=== PATIENT | female | born 1925 | race Asian ===

== ENCOUNTER 2016-07-23 11:58 | Inpatient (IN) | payer MEDICARE, MEDICAID, OTHER ==
[~2016-07-23] VITALS: Ht 160 cm; Wt 53.3 kg
[2016-07-23 12:02] VITALS: BP 235/105; PULSE 82; RESP 20; TEMP 97.9; O2SAT 96
[2016-07-23] MEDS ORDERED: OMEP20TA PO (12:21)
[2016-07-23] MEDS ORDERED: DILT0.05 PO (12:21)
[2016-07-23] MEDS ORDERED: LABETALOL HCL 100 MG/20 ML VIAL IV PUSH ONE (12:45)
[2016-07-23 13:00] LABS: AUTOMATED NEUTROPHIL # 4.6 TH/MM3 (1.8-7.7); BASOPHIL % 0.4 % (0.0-2.0); EOSINOPHIL # 0.1 TH/MM3 (0-0.4); HEMATOCRIT 38.3 % (35.0-46.0); HEMO FLAGS DIFF FINAL; LYMPH % 27.7 % (9.0-44.0); MEAN CELL VOLUME 91.7 FL (80.0-100.0); MEAN CORPUSCULAR HEMOGLOBIN 30.6 PG (27.0-34.0); MEAN CORPUSCULAR HGB CONC 33.4 % (32.0-36.0); MONO % 9.3 % (0.0-8.0); NEUT % 61.6 % (16.0-70.0); PLATELET COUNT 277 TH/MM3 (150-450); RED BLOOD COUNT 4.18 MIL/MM3 (4.00-5.30); RED CELL DISTRIBUTION WIDTH 13.6 % (11.6-17.2); WHITE BLOOD COUNT 7.4 TH/MM3 (4.0-11.0)
--- NOTE | 2016-07-23 13:02 | PD ---
HPI Chief Complaint: Neuro Symptoms/ Deficits Time Seen by Provider: 12:22 Travel History International Travel<30 days: No Contact w/Intl Traveler<30days: No Traveled to known affect area: No History of Present Illness HPI This patient was sent over by her primary physician who saw and examined her this morning. Primary physician was concern for stroke. Patient complains of discoordination of her left hand primarily. This is been going on for a day and a half. It is not worse or better today than yesterday. The doctor office reports that there was some degree of facial droop and left hand weakness and numbness. She has no right sided symptoms. No leg symptoms. Denies history of stroke. She has chronic if a call to control blood pressure. She arrives with accelerated hypertension of 222 systolic. Symptoms are moderately severe. No alleviating factors PFSH Past Medical History Diabetes: Yes Patient Takes Glucophage: No Hypertension: Yes Tetanus Vaccination: Unknown Influenza Vaccination: Yes ?: Not Past Surgical History Other Surgery: Yes (left breast cyst) Social History Alcohol Use: No Tobacco Use: No Substance Use: No Allergies-Medications (Allergen,Severity, Reaction): Coded Allergies: No Known Allergies (Unverified , 07/23/16) Reported Meds & Prescriptions Reported Meds & Active Scripts Active Reported Diltiazem ER 24 HR 180 Mg Tonie 180 Mg PO DAILY Omeprazole 20 Mg Tab 20 Mg PO DAILY Review of Systems General / Constitutional: No: Fever Eyes: No: Visual changes HENT: Positive: Headaches Cardiovascular: No: Chest Pain or Discomfort Respiratory: No: Shortness of Breath Gastrointestinal: No: Abdominal Pain Genitourinary: No: Dysuria Musculoskeletal: Positive: Weakness, No: Pain Skin: No Rash Neurologic: Positive: Weakness, Coordination Problem, Sensory Disturbance Psychiatric: No: Depression Endocrine: No: Polydipsia Hematologic/Lymphatic: No: Easy Bruising Physical Exam Narrative GENERAL: Well-nourished, well-developed patient in no apparent distress. SKIN: Warm and dry. HEAD: Atraumatic. Normocephalic. EYES: Pupils equal and round. No scleral icterus. No injection or drainage. ENT: No nasal bleeding or discharge. Mucous membranes pink and moist. NECK: Trachea midline. No JVD. CARDIOVASCULAR: Regular rate and rhythm. No murmur appreciated. RESPIRATORY: No accessory muscle use. Clear to auscultation. Breath sounds equal bilaterally. GASTROINTESTINAL: Abdomen soft, non-tender, nondistended. Hepatic and splenic margins not palpable. MUSCULOSKELETAL: No obvious deformities. No clubbing. No cyanosis. No edema. NEUROLOGICAL: Awake and alert. No obvious cranial nerve deficits. Motor grossly within normal limits. Normal speech. Sensation subjectively intact. I don't detect any facial droop. Strength seems symmetric. She seems discoordinated on finger to nose and finger to finger touching. It takes her a while to do those tests, longer than I would expect. PSYCHIATRIC: Appropriate mood and affect; insight and judgment normal. Data Data Last Documented VS Vital Signs Date Time Temp Pulse Resp B/P Pulse Ox O2 Delivery O2 Flow Rate FiO2 07/23/16 13:24 55 18 183/74 97 Room Air 07/23/16 12:02 97.9 Orders Iv Access Insert/Monitor (07/23/16 12:37) Complete Blood Count With Diff (07/23/16 12:37) Ct Brain W/O Iv Contrast(Rout) (07/23/16 ) Basic Metabolic Panel (Bmp) (07/23/16 12:37) Prothrombin Time / Inr (Pt) (07/23/16 12:37) Act Partial Throm Time (Ptt) (07/23/16 12:37) Electrocardiogram (07/23/16 ) Labetalol Inj (Trandate Inj) (07/23/16 12:45) Admit To Inpatient (07/23/16 ) Code Status (07/23/16 14:32) Vital Signs (Adult) Q4H (07/23/16 14:32) Activity Oob With Assistance (07/23/16 14:32) Diet Heart Healthy (07/23/16 Dinner) Sodium Chloride 0.9% Flush (Ns Flush) (07/23/16 14:45) Sodium Chloride 0.9% Flush (Ns Flush) (07/23/16 21:00) Acetaminophen (Tylenol) (07/23/16 14:45) Ondansetron Inj (Zofran Inj) (07/23/16 14:45) Temazepam (Restoril) (07/23/16 14:45) Comprehensive Metabolic Panel (07/24/16 06:00) Complete Blood Count With Diff (07/24/16 06:00) Case Management Consult (07/23/16 14:32) Scd Bilateral/Knee High ENOC.BID (07/23/16 14:32) Arsalan Bilateral/Knee High ENOC.QSHIFT (07/23/16 14:32) Acetaminophen (Tylenol) (07/23/16 14:45) Naloxone Inj (Narcan Inj) (07/23/16 14:45) Inpatient Certification (07/23/16 ) Albuterol-Ipratropium Neb (Duoneb Neb) (07/23/16 14:45) Enalaprilat Inj (Vasotec Inj) (07/23/16 14:45) Diltiazem Cd (Cardizem Cd) (07/24/16 09:00) Pantoprazole (Protonix) (07/24/16 09:00) Lipid Profile (07/24/16 06:00) Hemoglobin (Hgb) A1c (07/24/16 06:00) Vital Signs (Adult) Q2HX12,Q4H (07/23/16 14:35) Nih Stroke Scale - Nihss .Daily (07/23/16 14:35) Neuro Checks Q2HX12,Q4H (07/23/16 14:35) ^ Notify Dr: Other (07/23/16 14:35) Ot Request For Service (07/23/16 14:35) Pt Request For Service (07/23/16 14:35) St Request For Service (07/23/16 14:35) Us Carotid Arteries Comp Bilat (07/23/16 ) Mra Brain W/O Contrast (Cow) (07/23/16 ) Mri Brain W/O Contrast (07/23/16 ) Sodium Chlor 0.9% 1000 Ml Inj (Ns 1000 M (07/23/16 14:35) Aspirin Chew (Aspirin Chew) (07/24/16 09:00) Football Pad Repairer / Telemetry ENOC.Q8H (07/23/16 14:35) Consult Stoke Navigator (07/23/16 ) Heparin Inj (Heparin Inj) (07/23/16 14:45) Hydralazine (Apresoline) (07/23/16 14:45) Admit Order (Ed Use Only) (07/23/16 14:42) Labs Laboratory Tests Test 07/23/16 12:45 White Blood Count 7.4 TH/MM3 Red Blood Count 4.18 MIL/MM3 Hemoglobin 12.8 GM/DL Hematocrit 38.3 % Mean Corpuscular Volume 91.7 FL Mean Corpuscular Hemoglobin 30.6 PG Mean Corpuscular Hemoglobin 33.4 % Concent Red Cell Distribution Width 13.6 % Platelet Count 277 TH/MM3 Mean Platelet Volume 7.7 FL Neutrophils (%) (Auto) 61.6 % Lymphocytes (%) (Auto) 27.7 % Monocytes (%) (Auto) 9.3 % Eosinophils (%) (Auto) 1.0 % Basophils (%) (Auto) 0.4 % Neutrophils # (Auto) 4.6 TH/MM3 Lymphocytes # (Auto) 2.0 TH/MM3 Monocytes # (Auto) 0.7 TH/MM3 Eosinophils # (Auto) 0.1 TH/MM3 Basophils # (Auto) 0.0 TH/MM3 CBC Comment DIFF FINAL Differential Comment Prothrombin Time 10.0 SEC Prothromb Time International 0.9 RATIO Ratio Activated Partial 26.4 SEC Thromboplast Time Sodium Level 141 MEQ/L Potassium Level 3.9 MEQ/L Chloride Level 107 MEQ/L Carbon Dioxide Level 27.1 MEQ/L Anion Gap 7 MEQ/L Blood Urea Nitrogen 20 MG/DL Creatinine 1.19 MG/DL Estimat Glomerular Filtration 43 ML/MIN Rate Random Glucose 96 MG/DL Calcium Level 8.5 MG/DL [facility] Medical Decision Making Medical Screen Exam Complete: Yes Emergency Medical Condition: Yes Medical Record Reviewed: Yes Differential Diagnosis CVA, TIA, intracranial hemorrhage Narrative Course I have reviewed the patient's electronic medical record. Patient's last visit here was 2003 for mammogram IV placed I gave her 10 mg IV labetalol for accelerated hypertension of 222 systolic. Even in the face of possible ischemic CVA this exceeds are limits of permissive hypertension. I reviewed her EKG which shows sinus rhythm without ectopy Extended cardiac monitoring shows sinus rhythm without ectopy CBC is normal Metabolic profile is normal Coagulation studies are normal Brain CT is negative I spoke with her primary physician who saw her this morning and sent her here out of concern for stroke. It seems like her neurologic symptoms are waxing and waning. On recheck her neurologic status is not improved or worsened. 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
[2016-07-23 13:15] LABS: BICARBONATE 27.1 MEQ/L (21.0-32.0); POTASSIUM 3.9 MEQ/L (3.5-5.1)
[2016-07-23 13:16] LABS: APTT (PATIENT) 26.4 SEC (24.3-30.1); INTERNATIONAL NORMALIZED RATIO 0.9 RATIO
[2016-07-23 13:24] VITALS: BP 183/74; PULSE 55; RESP 18; O2SAT 97
--- NOTE | 2016-07-23 13:25 | RADRPT ---
EXAM DATE/TIME: 07/23/2016 13:01 [facility] COMPARISON: No previous studies available for comparison. INDICATIONS : Left upper extremitiy pain. RADIATION DOSE: 41.86 CTDIvol (mGy) MEDICAL HISTORY : Hypertension. Diabetes SURGICAL HISTORY : None. ENCOUNTER: Initial ACUITY: 1 day PAIN SCALE: 0/10 LOCATION: cranial TECHNIQUE: Multiple contiguous axial images were obtained of the head. Using automated exposure control and adj ustment of the mA and/or kV according to patient size, radiation dose was kept as low as reasonably a chievable to obtain optimal diagnostic quality images. FINDINGS: CEREBRUM: The ventricles are normal for age. No evidence of midline shift, mass lesion, hemorrhage or acute in farction. No extra-axial fluid collections are seen. Mild ischemic deep white matter demyelinization POSTERIOR FOSSA: The cerebellum and brainstem are intact. The 4th ventricle is midline. The cerebellopontine angle i s unremarkable. EXTRACRANIAL: The visualized portion of the orbits is intact. Ossification of the internal carotid arteries in the siphon and vertebral arteries at foramen SKULL: The calvaria is intact. No evidence of skull fracture. CONCLUSION: Normal examination for a patient of this age. Pieter Dwyer MD on July 23, 2016 at 13:23 Board Certified Radiologist. This report was verified electronically.
[2016-07-23] MEDS ORDERED: ENALAPRILAT 1.25 MG/ML VIAL IV PUSH PRN (14:45)
[2016-07-23] MEDS ORDERED: ACETAMINOPHEN 325 MG TAB PO PRN ×2 (14:45)
[2016-07-23] MEDS ORDERED: SODIUM CHLORIDE 0.9% FLUSH 5 ML FLUSH FLUSH PRN (14:45)
[2016-07-23] MEDS ORDERED: TEMAZEPAM 15 MG CAP PO PRN (14:45)
[2016-07-23] MEDS ORDERED: NALOXONE HCL 0.4 MG/ML AMP IV PRN (14:45)
[2016-07-23] MEDS ORDERED: ONDANSETRON HCL 4 MG/2 ML VIAL IVP PRN (14:45)
[2016-07-23] MEDS ORDERED: RESP: ALBUTEROL 2.5 MG/IPRATROPIUM 0.5 MG NEB (PRN) NEB (14:45)
--- NOTE | 2016-07-23 15:27 | HHI.HP ---
[facility] Chanel Vann MD Admission Diagnosis acute ischemic CVA,hypertensive emerg Diagnoses: (1) Hypertensive urgency (2) TIA (transient ischemic attack) (3) GERD (gastroesophageal reflux disease) (4) Diet-controlled diabetes mellitus (5) Acute renal failure Chief Complaint: Left hand weakness Travel History International Travel<30 Days: No Contact w/Intl Traveler <30 Da: No Traveled to Known Affected Are: No History of Present Illness 89-year-old [place] female with a history of hypertension, GERD, diet controlled diabetes type 2 chemotherapy to the ED for evaluation of for possible stroke as patient was sent to the ED by her PCP this morning. Apparently patient was seen in complain of discoordination of her left hand primarily, which started yesterday. Patient described sometimes after breakfast as she was washing dishes she started dropping her dishes mostly from her left hand. O on patient was unable to bottom her shirt. She also noticed some degree of facial drop exacerbated by left hand numbness. Patient states, on 07/17/16 she was prescribed another BP medication however due to poor communication with her PCPs office she hasn't been able to get his medications therefore she has noticed increase BP in the past several days. On arrival in the ED she had accelerated hypertension with systolic 222 which responded well to labetalol IV 1. She has no GI bleed. During my exam her symptoms seem to have resolved and head CT was negative. Review of Systems Other 12 systems reviewed and are negative except for the one mentioned in history of present illness Past Family Social History Past Medical History Diet control Diabetes Hypertension GERD Past Surgical History Left breast cyst Cholecystectomy Reported Medications Diltiazem ER 24 HR 180 Mg Tonie 180 Mg PO DAILY Omeprazole 20 Mg Tab 20 Mg PO DAILY Allergies: Coded Allergies: No Known Allergies (Unverified , 07/23/16) Family History Reported to sisters with history of TB Social History Alcohol Use: No Tobacco Use: No Substance Use: No Physical Exam Vital Signs Vital Signs Date Time Temp Pulse Resp B/P Pulse Ox O2 Delivery O2 Flow Rate FiO2 07/23/16 13:24 55 18 183/74 97 Room Air 07/23/16 12:02 97.9 82 20 235/105 96 Room Air Physical Exam GENERAL: This is a well-nourished, well-developed patient, in no apparent distress. SKIN: No rashes, ecchymoses or lesions. Cool and dry. HEAD: Atraumatic. Normocephalic. No temporal or scalp tenderness. EYES: Pupils equal round and reactive. Extraocular motions intact. No scleral icterus. No injection or drainage. ENT: Nose without bleeding, purulent drainage or septal hematoma. Throat without erythema, tonsillar hypertrophy or exudate. Uvula midline. Airway patent. NECK: Trachea midline. No JVD or lymphadenopathy. Supple, nontender, no meningeal signs. CARDIOVASCULAR: Regular rate and rhythm without murmurs, gallops, or rubs. RESPIRATORY: Clear to auscultation. Breath sounds equal bilaterally. No wheezes , rales, or rhonchi. GASTROINTESTINAL: Abdomen soft, non-tender, nondistended. No hepato-splenomegaly , or palpable masses. No guarding. MUSCULOSKELETAL: Extremities without clubbing, cyanosis, or edema. No joint tenderness, effusion, or edema noted. No calf tenderness. Negative Homans sign bilaterally. NEUROLOGICAL: Awake and alert. Cranial nerves II through XII intact. Motor and sensory grossly within normal limits. Five out of 5 muscle strength in all muscle groups. Normal speech. Laboratory Laboratory Tests Test 07/23/16 12:45 White Blood Count 7.4 Red Blood Count 4.18 Hemoglobin 12.8 Hematocrit 38.3 Mean Corpuscular Volume 91.7 Mean Corpuscular Hemoglobin 30.6 Mean Corpuscular Hemoglobin 33.4 Concent Red Cell Distribution Width 13.6 Platelet Count 277 Mean Platelet Volume 7.7 Neutrophils (%) (Auto) 61.6 Lymphocytes (%) (Auto) 27.7 Monocytes (%) (Auto) 9.3 Eosinophils (%) (Auto) 1.0 Basophils (%) (Auto) 0.4 Neutrophils # (Auto) 4.6 Lymphocytes # (Auto) 2.0 Monocytes # (Auto) 0.7 Eosinophils # (Auto) 0.1 Basophils # (Auto) 0.0 CBC Comment DIFF FINAL Differential Comment Prothrombin Time 10.0 Prothromb Time International 0.9 Ratio Activated Partial 26.4 Thromboplast Time Sodium Level 141 Potassium Level 3.9 Chloride Level 107 Carbon Dioxide Level 27.1 Anion Gap 7 Blood Urea Nitrogen 20 Creatinine 1.19 Estimat Glomerular Filtration 43 Rate Random Glucose 96 Calcium Level 8.5 Result Diagram: 07/23/16 1245 07/23/16 1245 Imaging Last Impressions Head CT 07/23/16 0000 Signed Impressions: Service Date/Time: Saturday, July 23, 2016 13:01 - CONCLUSION: Normal examination for a patient of this age. Pieter Dwyer MD Assessment and Plan Problem List: (1) TIA (transient ischemic attack) ICD Code: G45.9 Status: Acute (2) Hypertensive urgency ICD Code: I16.0 Status: Acute (3) Diet-controlled diabetes mellitus ICD Code: E11.9 Status: Acute (4) GERD (gastroesophageal reflux disease) ICD Code: K21.9 Status: Chronic (5) Acute renal failure ICD Code: N17.9 Status: Acute Assessment and Plan 89-year-old female with 1-TIA: Head CT noted and review by me and negative however will check brain MRI/ MRA as well as carotid ultrasound + 2-D echo. Will consult neurology. Check lipid profile and A1c. Start aspirin and consider adding statin based on LFTs as well as LDH. PT/OT/speech consult 2-Hypertensive urgency: Status post labetalol IV with improvement of BP 3-Hypertension: Resume Cardizem and add hydralazine 4-Acute renal failure: Prerenal, secondary to dehydration, gentle IV fluid hydration and avoid all nephrotoxic drugs. Monitor BUN/creatinine 5-GERD: Resume Prilosec 6-Diet control diabetes: Check hemoglobin A1c 7-DVT prophylaxis: Heparin Code Status Full code Discussed Condition With Patient, ED physician Physician Certification 2 Midnight Certification Type: Admission for Inpatient Services Order for Inpatient Services The services are ordered in accordance with Medicare regulations or non- Medicare payer requirements, as applicable. In the case of services not specified as inpatient-only, they are appropriately provided as inpatient services in accordance with the 2-midnight benchmark. Estimated LOS (days): 2 days is the estimated time the patient will need to remain in the hospital, assuming treatment plan goals are met and no additional complications. Post-Hospital Plan: Not yet determined Alexandro Baltazar MD Jul 23, 2016 15:27
[2016-07-23 15:36] VITALS: BP 185/81; PULSE 57; RESP 18; O2SAT 97
[2016-07-23] MEDS: SODIUM CHLOR 0.9% 1000 ML INJ 1,000 ML IV SCH (16:10)
[2016-07-23] MEDS: HEPARIN SODIUM - SQ 10,000 UNITS/ML VIAL SQ SCH (16:10)
--- NOTE | 2016-07-23 16:57 | RADRPT ---
EXAM DATE/TIME: 07/23/2016 16:24 [facility] COMPARISON: No previous studies available for comparison. INDICATIONS : CVA. Left upper extremity weakness. MEDICAL HISTORY : Hypertension. Diabetes mellitus type 2. SURGICAL HISTORY : Left breast cyst. ENCOUNTER: Subsequent ACUITY: 1 day PAIN SCORE: 0/10 LOCATION: head. Please note a normal MRA of the brain does not entirely exclude the possibility of a small aneurysm, nor the possibility of distal intracranial vessel disease. TECHNIQUE: 3D time of flight MRA was performed. Source images, multiplanar STS MIP, and 3D volume MIP reconstru ctions were reviewed. FINDINGS: There is excellent visualization of the major intracranial arteries out to the second-order branch ve ssels. Variant anatomy is seen with persistent circulation noted bilaterally. Scattered atheros clerotic plaque with areas of mild luminal narrowing noted throughout. The most significant stenosis measures 50-60% involving the mid to distal right M1 segment. There is no evidence for aneurysm or va scular malformation. CONCLUSION: 1. Scattered atherosclerotic disease most pronounced involving the M1 segment on the right with a 50- 60% stenosis. Lai Dietrich Jr., MD on July 23, 2016 at 16:52 Board Certified Radiologist. This report was verified electronically.
--- NOTE | 2016-07-23 17:01 | RADRPT ---
EXAM DATE/TIME: 07/23/2016 16:24 [facility] COMPARISON: No previous studies available for comparison. INDICATIONS : CVA. Left upper extremity weakness. MEDICAL HISTORY : Hypertension. Diabetes mellitus type 2. SURGICAL HISTORY : Left breast cyst. ENCOUNTER: Subsequent ACUITY: 1 day PAIN SCORE: 0/10 LOCATION: head. TECHNIQUE: Multiplanar, multisequence MRI of the brain was performed without contrast. FINDINGS: CEREBRUM: The ventricles are normal for age. Cavum septum pellucidum noted. No evidence of midline shift, mass lesion or hemorrhage. No extraaxial fluid collections are seen. The pituitary gland and suprasella r cistern are normal in configuration. WHITE MATTER: Multiple foci of high T2 signal abnormality involving the periventricular white matter of both cerebr al hemispheres. This is symmetrical. POSTERIOR FOSSA: The cerebellum and brainstem are intact. The 4th ventricle is midline. The cerebellopontine angle is unremarkable. The cerebellar tonsils are normal in position. DIFFUSION IMAGING: There is a tiny focus of restricted diffusion involving the cortex of the right parietal lobe near th e vertex. EXTRACRANIAL: The visualized portions of the orbits and paranasal sinuses are unremarkable. CONCLUSION: 1. Tiny focus of acute cortical infarction involving the right parietal lobe. No hemorrhage. 2. Extensive chronic small vessel ischemic change. Lai Dietrich Jr., MD on July 23, 2016 at 16:56 Board Certified Radiologist. This report was verified electronically.
[2016-07-23 20:00] VITALS: BP 178/88; PULSE 62; RESP 18; TEMP 97; O2SAT 95
[2016-07-23] MEDS: hydrALAZINE HCL 25 MG TAB PO SCH (21:54)
[2016-07-23] MEDS: SODIUM CHLORIDE 0.9% FLUSH 5 ML FLUSH FLUSH SCH (21:54)
--- NOTE | 2016-07-23 22:45 | RADRPT ---
EXAM DATE/TIME: 07/23/2016 22:22 [facility] COMPARISON: MRA BRAIN W/O CONTRAST, July 23, 2016, 16:24. MRI BRAIN W/O CONTRAST, July 23, 2016, 16:24. CT BRAIN W/O CONTRAST, July 23, 2016, 13:01. INDICATIONS : Transient ischemic attack. MEDICAL HISTORY : Hypertension. Diabetes. SURGICAL HISTORY : Left breast cyst surgery. ENCOUNTER: Initial ACUITY: 1 day PAIN SCORE: 0/10 LOCATION: Bilateral neck PEAK SYSTOLIC VELOCITIES (cm/sec): ICA/CCA RATIO: Right: 1.3 Left: 1.5 ICA: Right: 92 Left: 108 CCA: Right: 68 Left: 72 ECA: Right: 57 Left: 57 VERTEBRAL: Right: 38 antegrade Left: 52 antegrade Elevated flow velocities and ICA/CCA ratios have been found to correlate with increased degrees of vessel stenosis, calculated as percentage of diameter relative to a normal segment of distal ICA/CCA FINDINGS: RIGHT CAROTID: Trace plaque seen at the bulb and proximal internal carotid artery. LEFT CAROTID: Mild plaque seen within the bulb and proximal internal carotid artery. VERTEBRAL ARTERIES: Antegrade flow is seen in both vertebral arteries. MISCELLANEOUS: None. CONCLUSION: Bilateral carotid bifurcation atherosclerotic plaque, minimal on the right and mild on the left. No h emodynamically significant narrowing. Kaiser Nassar MD on July 23, 2016 at 22:42 Board Certified Radiologist. This report was verified electronically.
--- NOTE | 2016-07-23 23:09 | EKG ---
Date Performed: 07/23/2016 Time Performed: 13:18:22 PTAGE: 89 years EKG: SINUS BRADYCARDIA BORDERLINE ECG NO PREVIOUS TRACING DOCTOR: Ramesh Nichole Interpretating Date/Time 07/23/2016 23:08:44
[2016-07-24] VITALS (8 sets, daily range): BP systolic 164–193; BP diastolic 79–86; PULSE 60–94; RESP 18–20; TEMP 95.4–98.8; O2SAT 94–95
[2016-07-24] MEDS: HEPARIN SODIUM - SQ 10,000 UNITS/ML VIAL SQ SCH ×2 (03:58→15:11)
[2016-07-24] MEDS: SODIUM CHLOR 0.9% 1000 ML INJ 1,000 ML IV SCH ×4 (03:58→22:04)
[2016-07-24] MEDS: SODIUM CHLORIDE 0.9% FLUSH 5 ML FLUSH FLUSH SCH ×2 (08:33→21:00)
[2016-07-24] MEDS: PANTOPRAZOLE SOD 20 MG DELAYED RELEASE TAB PO SCH (08:38)
[2016-07-24] MEDS: ATORVASTATIN 10 MG TAB PO SCH (08:38)
[2016-07-24] MEDS: DILTIAZEM-CD 180 MG CAP ER PO SCH (08:38)
[2016-07-24] MEDS ORDERED: ASPIRIN 81 MG CHEW TAB PO SCH (09:00)
--- NOTE | 2016-07-24 09:06 | MB ---
cc: LUC DOVE DATE OF CONSULTATION 07/24/2016 REASON FOR CONSULTATION This is an 89-year-old right-handed woman with a history of non-insulin dependent diabetes and hypothyroidism. She had some chest pain recently, a little bit yesterday. She was making breakfast, was washing the dishes after that when her left hand seemed weak and she came into the hospital. She was noted to have possibly a slight left facial droop also in the ER. MRI shows an acute small right cortically based infarct in the right MCA territory and I am asked to see her for neurological evaluation. REVIEW OF SYSTEMS She denies any hypertension, hypercholesterolemia, palpitations, DC, stent, angioplasty, A fib, Coumadin, renal, hepatic or pulmonary disease, lupus, ulcer, cancer seizure or stroke. She had a few falls last August when she was trying to get on the bus carrying to much, otherwise she walks quite a bit. She is very healthy overall. ALLERGIES NO KNOWN DRUG ALLERGIES. MEDICATIONS AT HOME 1. Diltiazem 2. Omeprazole 3. She was not taking an aspirin a day. PHYSICAL EXAM On exam here, 178/88, although initially 235/105, still 190/84. NECK: There were no carotid bruits. HEART: Regular rhythm. I not take a murmur. NEUROLOGIC: Pupils are equal. Visual bentley are full. Extraocular movements intact without nystagmus. Face moves symmetrically with normal sensation, especially on the left. Tongue was midline. There was no drift. She had normal strength in the upper and lower extremities bilaterally including the left hand. Fast finger movements are symmetric and normal including the left hand. She is not ataxic on [id number]. DTRs are 1+ and symmetric throughout. Toes are downgoing bilaterally. Pinprick was intact throughout upper and lower extremities and face bilaterally including the left hand. Speech is fluent. She is not aphasic. LABORATORY DATA MRI shows some mild white matter changes bilaterally consistent with her age, but there is also an acute right cortically small infarcts in the right MCA territory. Carotid ultrasound was read as minimal disease bilaterally. MRA of the [place] showed a possible 50-60% right middle cerebral artery stenosis. Looking at the films, there does appear to be some stenosis there, although it does not appear to be severe. It could be a plaque sitting there. OTHER LABS CBC is normal. Basic metabolic profile normal except for creatinine 1.19. Coags normal. Head CT is read as negative. EKG showed sinus rhythm. She has been sinus rhythm overnight. IMPRESSION Acute right MCA infarct. We will get her well-hydrated and check a CTA of that right MCA. I am also going to check an echocardiogram on her and with the chest pain, I would check a troponin and consider having cardiology see her as certainly this type of infarct could be cardioembolic. She will need a Holter monitor done. I would just put her on aspirin for now. We will check her LDL. The population does tend to have more intracranial stenoses and how significant this is, is unclear at this time. MD GUIDO Gill/PASCUAL /8:43 AM /8:52 AM
[2016-07-24] MEDS ORDERED: IOHEXOL 350 MG/ML 10 ML VIAL (for RAD DIAG) IV ONE (09:33)
[2016-07-24 09:39] LABS: AUTOMATED NEUTROPHIL # 3.7 TH/MM3 (1.8-7.7); BASOPHIL % 0.5 % (0.0-2.0); EOSINOPHIL # 0.1 TH/MM3 (0-0.4); EOSINOPHIL % 1.5 % (0.0-4.0); HEMATOCRIT 34.1 % (35.0-46.0); HEMO FLAGS DIFF FINAL; LYMPH % 23.1 % (9.0-44.0); LYMPHOCYTE # 1.3 TH/MM3 (1.0-4.8); MEAN CELL VOLUME 89.2 FL (80.0-100.0); MEAN CORPUSCULAR HEMOGLOBIN 30.8 PG (27.0-34.0); MEAN CORPUSCULAR HGB CONC 34.5 % (32.0-36.0); MONO % 7.7 % (0.0-8.0); NEUT % 67.2 % (16.0-70.0); PLATELET COUNT 257 TH/MM3 (150-450); RED BLOOD COUNT 3.83 MIL/MM3 (4.00-5.30); RED CELL DISTRIBUTION WIDTH 13.5 % (11.6-17.2); WHITE BLOOD COUNT 5.4 TH/MM3 (4.0-11.0)
[2016-07-24 10:04] LABS: ALKALINE PHOSPHATASE 65 U/L (45-117); ALT (GPT) 18 U/L (10-53); ANION GAP 7 MEQ/L (5-15); AST (GOT) 19 U/L (15-37); BICARBONATE 28.1 MEQ/L (21.0-32.0); BLOOD UREA NITROGEN 15 MG/DL (7-18); CHLORIDE 108 MEQ/L (98-107); GLOMERULAR FILTRATION RATE 65 ML/MIN (>89); HDL CHOLESTEROL 90.8 MG/DL (40.0-60.0); LDL CHOLESTEROL 111 MG/DL (0-99); POTASSIUM 3.8 MEQ/L (3.5-5.1); SODIUM (NA) 143 MEQ/L (136-145); TOTAL BILIRUBIN ADULT 0.8 MG/DL (0.2-1.0)
--- NOTE | 2016-07-24 10:21 | RADRPT ---
EXAM DATE/TIME: 07/24/2016 09:13 [facility] COMPARISON: MRI BRAIN W/O CONTRAST, July 23, 2016, 16:24. INDICATIONS : Right middle cerebral artery stenosis. IV CONTRAST: 50 cc Omnipaque 350 (iohexol) IV ; Cumulative dose for multiple exams. RADIATION DOSE: 13.26 CTDIvol (mGy) ; Combined studies MEDICAL HISTORY : Hypertension. Diabetes SURGICAL HISTORY : None. ENCOUNTER: Initial ACUITY: 1 day PAIN SCALE: 0/10 LOCATION: cranial TECHNIQUE: Volumetric scanning was performed using a multi-row detector CT scanner. The data was post processed with a variety of visualization algorithms including full volume maximum intensity projection, multi -planar sliding thin slab reformation, curved planar reformation, and surface rendering techniques. Using automated exposure control and adjustment of the mA and/or kV according to patient size, radiat ion dose was kept as low as reasonably achievable to obtain optimal diagnostic quality images. FINDINGS: There is excellent visualization of the major intracranial arteries out to the second-order branch ve ssels. There is no evidence for aneurysm, vessel truncation or stenosis, and no evidence for vascula r malformation. The M1 segments are symmetric and normal in size. The right A1 segment is mildly atrophic but patent . Symmetric flow in both A2 segments; no flow is seen in the anterior communicating artery. The rig ht posterior cerebral artery arises from the anterior circulation. The basilar artery tip is normal in size. CONCLUSION: No evidence of vessel truncation or aneurysm. Lai Paulson MD on July 24, 2016 at 10:12 Board Certified Radiologist. This report was verified electronically.
--- NOTE | 2016-07-24 10:23 | RADRPT ---
EXAM DATE/TIME: 07/24/2016 09:13 [facility] COMPARISON: No previous studies available for comparison. INDICATIONS : Right middle cerebral artery stenosis. IV CONTRAST: 50 cc Omnipaque 350 (iohexol) IV ; Cumulative dose for multiple exams. RADIATION DOSE: 13.26 CTDIvol (mGy) ; Combined studies MEDICAL HISTORY : Hypertension. Diabetes SURGICAL HISTORY : None. ENCOUNTER: Initial ACUITY: 1 day PAIN SCALE: 0/10 LOCATION: neck TECHNIQUE: Volumetric scanning was performed using a multirow detector CT scanner. The data was post processed with a variety of visualization algorithms including full-volume maximum intensity projection, multip lanar sliding thin-slab reformation, curved-planar reformation, and surface-rendering techniques. Us ing automated exposure control and adjustment of the mA and/or kV according to patient size, radiatio n dose was kept as low as reasonably achievable to obtain optimal diagnostic quality images. FINDINGS: AORTIC ARCH: There is a three-vessel origin of the great vessels from the aorta. No evidence of ostial narrowing. RIGHT CAROTID: The common carotid artery is intact. The carotid bulb has a normal configuration without ulceration o r narrowing. Moderate calcification of the carotid bulb in the wall without luminal narrowing. The internal carotid artery lumen is smooth without stenosis. The external carotid artery is intact. LEFT CAROTID: The common carotid artery is intact. The carotid bulb has a normal configuration without ulceration or narrowing. The internal carotid artery lumen is smooth without stenosis. There are several areas of wall calcification in the proximal internal carotid artery without luminal narrowing. The process helper al carotid artery is intact. VERTEBRALS: The vertebral arteries are asymmetric with slightly narrowed right vertebral. No stenotic lesions ar e seen. CONCLUSION: No stenotic lesions seen in either carotid. Lai Paulson MD on July 24, 2016 at 10:20 Board Certified Radiologist. This report was verified electronically.
[2016-07-24 10:57] LABS: ANION GAP 6 MEQ/L (5-15); BICARBONATE 28.5 MEQ/L (21.0-32.0); BLOOD UREA NITROGEN 16 MG/DL (7-18); CHLORIDE 108 MEQ/L (98-107); POTASSIUM 3.6 MEQ/L (3.5-5.1); SODIUM (NA) 142 MEQ/L (136-145)
[2016-07-24] MEDS: ASPIRIN EC 325 MG TABEC PO SCH (10:58)
--- NOTE | 2016-07-24 11:00 | HHI.PR ---
Subjective Remarks Follow-up acute right MCA infarct 07/24/16-patient seen and examined, initially admitted secondary to hypertensive emergency and TIA with a negative brain CT scan however brain MRI was positive for acute right MCA infarct. Patient, this morning denies any complication. Still with some left hand numbness otherwise unremarkable. Objective Vitals Vital Signs Date Time Temp Pulse Resp B/P Pulse Ox O2 Delivery O2 Flow Rate FiO2 07/24/16 08:33 98.6 67 18 190/84 95 07/24/16 05:30 98.8 69 20 167/80 95 07/24/16 00:55 60 07/24/16 00:00 97.7 67 19 165/80 94 07/23/16 20:00 97.0 62 18 178/88 95 07/23/16 15:36 57 18 185/81 97 Room Air 07/23/16 13:24 55 18 183/74 97 Room Air 07/23/16 12:02 97.9 82 20 235/105 96 Room Air I/O 07/23/16 07/23/16 07/23/16 07/24/16 07/24/16 07/24/16 07:00 15:00 23:00 07:00 15:00 23:00 Intake Total 400 ml 550 ml Balance 400 ml 550 ml Intake Oral 400 ml 550 ml # Voids 2 1 # Bowel Movements 0 0 Result Diagram: 07/24/16 0840 07/24/16 0840 Imaging Last Impressions Neck CTA 07/24/16 0844 Signed Impressions: Service Date/Time: July 09:13 - CONCLUSION: No stenotic lesions seen in either carotid. Lai Paulson MD Head CTA 07/24/16 0844 Signed Impressions: Service Date/Time: July 09:13 - CONCLUSION: No evidence of vessel truncation or aneurysm. Lai Paulson MD Head Magnetic Resonance Angiography 07/23/16 0000 Signed Impressions: Service Date/Time: Saturday, July 23, 2016 16:24 - CONCLUSION: 1. Scattered atherosclerotic disease most pronounced involving the M1 segment on the right with a 50-60%% stenosis. Lai Dietrich Jr., MD Head CT 07/23/16 0000 Signed Impressions: Service Date/Time: Saturday, July 23, 2016 13:01 - CONCLUSION: Normal examination for a patient of this age. Pieter Dwyer MD Carotid Artery Ultrasound 07/23/16 0000 Signed Impressions: Service Date/Time: Saturday, July 23, 2016 22:22 - CONCLUSION: Bilateral carotid bifurcation atherosclerotic plaque, minimal on the right and mild on the left. No hemodynamically significant narrowing. Kaiser Nassar MD Brain MRI 07/23/16 0000 Signed Impressions: Service Date/Time: Saturday, July 23, 2016 16:24 - CONCLUSION: 1. Tiny focus of acute cortical infarction involving the right parietal lobe. No hemorrhage. 2. Extensive chronic small vessel ischemic change. Lai Dietrich Jr., MD Objective Remarks GENERAL: NAD SKIN: Warm and dry. HEAD: Normocephalic. EYES: No scleral icterus. No injection or drainage. NECK: Supple, trachea midline. No JVD or lymphadenopathy. CARDIOVASCULAR: Regular rate and rhythm without murmurs, gallops, or rubs. RESPIRATORY: Breath sounds equal bilaterally. No accessory muscle use. GASTROINTESTINAL: Abdomen soft, non-tender, nondistended. MUSCULOSKELETAL: No cyanosis, or edema. Neuro:CN II-XII BACK: Nontender without obvious deformity. No CVA tenderness. A/P Problem List: (1) TIA (transient ischemic attack) ICD Code: G45.9 Status: Acute (2) Hypertensive urgency ICD Code: I16.0 Status: Acute (3) Diet-controlled diabetes mellitus ICD Code: E11.9 Status: Acute (4) GERD (gastroesophageal reflux disease) ICD Code: K21.9 Status: Chronic (5) Acute renal failure ICD Code: N17.9 Status: Acute Assessment and Plan 89-year-old female with 1-Acute right MCA infarct: Head CT negative however brain MRI with finding of Tiny focus of acute cortical infarction involving the right parietal lobe. Neck /brain CTA noted. Carotid ultrasound noted pending 2-D echo. Appreciate input from neurology. We will allow permissive hypertension and treat for SBP>210. Will need outpatient Holter monitoring. Continue aspirin as well as Lipitor 10 mg daily which was started today 07/24/16. Consult rehabilitation medicine and continue with PT/OT/speech 2-Hypertensive urgency: Resolved 3-Hypertension: We will allow permissive hypertension therefore will hold hydralazine 4-Acute renal failure: Prerenal, secondary to dehydration, resolved with gentle IV fluid hydration and avoid all nephrotoxic drugs. Monitor BUN/creatinine 5-GERD: Continue Prilosec 6-Diet control diabetes: hemoglobin A1c pending 7-DVT prophylaxis: Continue Heparin;(No evidence of intracranial bleed) Discharge Planning Likely discharge 07/25/16 with home health care Alexandro Baltazar MD Jul 24, 2016 11:00
[2016-07-24 11:24] LABS: CREATINE KINASE 95 U/L (26-192); FREE T4 0.99 NG/DL (0.76-1.46); GLOMERULAR FILTRATION RATE 55 ML/MIN (>89); HDL CHOLESTEROL 83.4 MG/DL (40.0-60.0); LDL CHOLESTEROL 96 MG/DL (0-99)
--- NOTE | 2016-07-24 16:12 | EC ---
Study Study Date:07/24/2016 STUDY CONCLUSIONS SUMMARY - Left ventricle: The cavity size was normal. Wall thickness was at the upper limits of normal. Systolic function was normal. The estimated ejection fraction was in the range of 55% to 60%. Wall motion was normal; there were no regional wall motion abnormalities. Doppler parameters are consistent with abnormal left ventricular relaxation (grade 1 diastolic dysfunction). - Pulmonary arteries: PA peak pressure: 53mm Hg (S). If LV function is below 40, please consider prescribing an ACEI or ARB or document rationale for non-use. PROCEDURE DATA STUDY STATUS: Elective. Procedure: Transthoracic echocardiography. Image quality was good. Scanning was performed from the parasternal, apical, and subcostal acoustic windows. Study completion: The patient tolerated the procedure well. Transthoracic echocardiography. M-mode, complete 2D, complete spectral Doppler, and color Doppler. Patient status: Inpatient. CARDIAC ANATOMY LEFT VENTRICLE: The cavity size was normal. Wall thickness was at the upper limits of normal. Systolic function was normal. The estimated ejection fraction was in the range of 55% to 60%. Wall motion was normal; there were no regional wall motion abnormalities. Doppler parameters are consistent with abnormal left ventricular relaxation (grade 1 diastolic dysfunction). AORTIC VALVE: Trileaflet; mildly thickened leaflets. Doppler: There was no stenosis. No significant regurgitation. MITRAL VALVE: The valve appears to be grossly normal. Doppler: There was no evidence for stenosis. Trace regurgitation. Peak gradient: 2mm Hg (D). RIGHT VENTRICLE: The cavity size was normal. Systolic function was normal. PULMONIC VALVE: Not well visualized. Doppler: There was no evidence for stenosis. No significant regurgitation. TRICUSPID VALVE: The valve appears to be grossly normal. Doppler: There was no evidence for stenosis. Trace regurgitation. PERICARDIUM: There was no pericardial effusion. BASIC MEASUREMENTS ADULT Normal Left ventricle LV internal dimension, ED, chordal level, *40.6 mm 43-52 PLAX LV internal dimension, ES, chordal level, 30.5 mm 23-38 PLAX Fractional shortening, chordal level, PLAX *25 % >29 LV posterior wall thickness, ED 7.36 mm IVS/LVPW ratio, ED *1.56 <1.3 Ventricular septum Septal thickness, ED 11.5 mm Aortic valve Leaflet separation 25 mm 15-26 Right ventricle RV internal dimension, ED, PLAX 32.2 mm 19-38 BASIC MEASUREMENTS ADULT Normal Aortic valve Leaflet separation 25 mm 15-26 Aorta Root diameter, ED 28 mm 20-37 Left atrium Anterior-posterior dimension, ES 33 mm 19-40 LA/aortic root ratio 1.18 DOPPLER MEASUREMENTS ADULT Normal Main pulmonary artery Pressure, S *53 mm Hg =30 Mitral valve Peak E-wave velocity 75.5 cm/s Peak A-wave velocity 106 cm/s Peak gradient, D 2 mm Hg Peak E/A ratio 0.7 Tricuspid valve Regurgitant peak velocity 328 cm/s Peak RV-RA gradient, S 43 mm Hg Maximal regurgitant velocity 328 cm/s Systemic veins Estimated CVP 10 mm Hg Right ventricle RV pressure, S *53 mm Hg <30 LEGEND: Mean values are shown as u=mean value. Asterisk (*) machado values outside specified normal range. Prepared and signed by Ramesh Nichole [id number]
[2016-07-24 17:02] LABS: HEMOGLOBIN A1b 0.8 %; HEMOGLOBIN Ao 85.8 %; HEMOGLOBIN F 0.9 %; HEMOGLOBIN LA1C 1.9 %; HEMOGLOBIN P3 3.8 %
[2016-07-24] MEDS: hydrALAZINE HCL 25 MG TAB PO PRN ×2 (17:11→22:17)
[2016-07-25] VITALS (8 sets, daily range): BP systolic 114–183; BP diastolic 56–78; PULSE 60–72; RESP 20; TEMP 95.9–98.4; O2SAT 96–100
[2016-07-25] MEDS: HEPARIN SODIUM - SQ 10,000 UNITS/ML VIAL SQ SCH (03:08)
[2016-07-25 06:35] LABS: BLOOD, URINE NEG (NEG); GLUCOSE,URINE NEG (NEG); KETONE, URINE NEG (NEG); NITRITE,URINE NEG (NEG); PH, URINE 6.5 (5.0-8.5); SQUAMOUS EPITHELIAL CELL URINE <1 /hpf (0-5); URINE COLOR LIGHT-YELLOW (YELLW/STRAW)
[2016-07-25 06:37] LABS: COMMENT (UR) CULT NOT INDICATED; CULTURE IF INDICATED CULT NOT INDICATED
[2016-07-25] MEDS: SODIUM CHLORIDE 0.9% FLUSH 5 ML FLUSH FLUSH SCH (08:18)
--- NOTE | 2016-07-25 08:18 | HHI.PR ---
Subjective Remarks sr Objective Vital Signs Date Time Temp Pulse Resp B/P Pulse Ox O2 Delivery O2 Flow Rate FiO2 07/25/16 05:51 162/78 07/25/16 04:00 97.0 62 20 183/76 96 07/25/16 00:18 68 07/25/16 00:00 95.9 60 20 170/71 97 07/24/16 20:00 97.3 72 20 183/79 95 07/24/16 16:17 95.4 86 18 193/86 95 07/24/16 15:10 60 07/24/16 12:12 96.8 94 18 164/81 95 07/24/16 08:33 98.6 67 18 190/84 95 I/O 07/24/16 07/24/16 07/24/16 07/25/16 07/25/16 07/25/16 07:00 15:00 23:00 07:00 15:00 23:00 Intake Total 550 ml 720 ml 240 ml 240 ml Balance 550 ml 720 ml 240 ml 240 ml Intake Oral 550 ml 720 ml 240 ml 240 ml # Voids 1 4 1 2 # Bowel Movements 0 1 0 0 Result Diagram: 07/24/16 0840 07/24/16 1015 Objective Remarks awake laert no focal deficits left hand nl Assessment and Plan Assessment and Plan imp needs bp control to 140/ now b4 dc small r coritical cva ctax2 neg echo nl ldl up enough i think needs STATIN started by med team lab ow ok no r mca dz by cta holter pend she can go home when jony <140/ and on asa 325 a day anais will need cardionet o/p Maycol Hutson MD Jul 25, 2016 08:18
[2016-07-25] MEDS: ATORVASTATIN 10 MG TAB PO SCH (08:19)
[2016-07-25] MEDS: DILTIAZEM-CD 180 MG CAP ER PO SCH (08:20)
[2016-07-25] MEDS: ASPIRIN EC 325 MG TABEC PO SCH (08:20)
[2016-07-25] MEDS: PANTOPRAZOLE SOD 20 MG DELAYED RELEASE TAB PO SCH (08:20)
[2016-07-25] MEDS: hydrALAZINE HCL 25 MG TAB PO PRN (08:38)
[2016-07-25] MEDS: hydrALAZINE HCL 25 MG TAB PO SCH (09:00)
[2016-07-25] MEDS: SODIUM CHLOR 0.9% 1000 ML INJ 1,000 ML IV SCH (11:24)
--- NOTE | 2016-07-25 11:30 | HHI.PR ---
Subjective Remarks Follow-up acute right MCA infarct 07/24/16-patient seen and examined, initially admitted secondary to hypertensive emergency and TIA with a negative brain CT scan however brain MRI was positive for acute right MCA infarct. Patient, this morning denies any complication. Still with some left hand numbness otherwise unremarkable. 07/25/16-patient seen and examined, no acute event overnight and stable. Case discussed with patient PCP, who also called to hospital and spoke to the patient as well as business support coordinator. Objective Vitals Vital Signs Date Time Temp Pulse Resp B/P Pulse Ox O2 Delivery O2 Flow Rate FiO2 07/25/16 08:00 98.1 64 20 179/76 99 07/25/16 05:51 162/78 07/25/16 04:00 97.0 62 20 183/76 96 07/25/16 00:18 68 07/25/16 00:00 95.9 60 20 170/71 97 07/24/16 20:00 97.3 72 20 183/79 95 07/24/16 16:17 95.4 86 18 193/86 95 07/24/16 15:10 60 07/24/16 12:12 96.8 94 18 164/81 95 I/O 07/24/16 07/24/16 07/24/16 07/25/16 07/25/16 07/25/16 07:00 15:00 23:00 07:00 15:00 23:00 Intake Total 550 ml 720 ml 240 ml 240 ml Balance 550 ml 720 ml 240 ml 240 ml Intake Oral 550 ml 720 ml 240 ml 240 ml # Voids 1 4 1 2 # Bowel Movements 0 1 0 0 Result Diagram: 07/24/16 0840 07/24/16 1015 Objective Remarks GENERAL: NAD SKIN: Warm and dry. HEAD: Normocephalic. EYES: No scleral icterus. No injection or drainage. NECK: Supple, trachea midline. No JVD or lymphadenopathy. CARDIOVASCULAR: Regular rate and rhythm without murmurs, gallops, or rubs. RESPIRATORY: Breath sounds equal bilaterally. No accessory muscle use. GASTROINTESTINAL: Abdomen soft, non-tender, nondistended. MUSCULOSKELETAL: No cyanosis, or edema. Neuro:CN II-XII BACK: Nontender without obvious deformity. No CVA tenderness. A/P Problem List: (1) TIA (transient ischemic attack) ICD Code: G45.9 Status: Acute (2) Hypertensive urgency ICD Code: I16.0 Status: Acute (3) Diet-controlled diabetes mellitus ICD Code: E11.9 Status: Acute (4) GERD (gastroesophageal reflux disease) ICD Code: K21.9 Status: Chronic (5) Acute renal failure ICD Code: N17.9 Status: Acute Assessment and Plan 89-year-old female with 1-Acute right MCA infarct: Head CT negative however brain MRI with finding of Tiny focus of acute cortical infarction involving the right parietal lobe. Neck /brain CTA noted. Carotid ultrasound noted and 2-D echo with EF of 55-60%. Appreciate input from neurology. s/p permissive hypertension . Holter monitoring pending. Continue aspirin as well as Lipitor 10 mg daily as well as BP meds. Continue with PT/OT/speech . 2-Hypertensive urgency: Resolved 3-Hypertension: s/p permissive hypertension; continue Cardizem 180 mg daily as well as hydralazine 25 mg twice a day 4-Acute renal failure: Prerenal, secondary to dehydration, resolved with gentle IV fluid hydration and avoid all nephrotoxic drugs. Monitor BUN/creatinine 5-GERD: Continue Prilosec 6-Diet control diabetes: hemoglobin A1c 5.5 7-DVT prophylaxis: Continue Heparin;(No evidence of intracranial bleed) Discharge Planning Likely discharge 07/25/16 with home health care Alexandro Baltazar MD Jul 25, 2016 11:30
--- NOTE | 2016-07-25 11:31 | HHI.FF ---
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 My clinical findings support the need for the requested home health care services because: Deconditioned w/ increased weakness I certify that my clinical findings support that this patient is homebound because: Poor cardiac reserve Alexandro Baltazar MD Jul 25, 2016 11:31
[2016-07-25] MEDS ORDERED: Aspirin Ec PO (11:33)
[2016-07-25] MEDS ORDERED: HYDR50TA15 PO (11:33)
--- NOTE | 2016-07-25 11:38 | HHI.DS ---
Discharge Summary Admission Date Jul 23, 2016 at 14:47 Discharge Date: Jul 25, 2016 Admitting Diagnosis acute ischemic CVA,hypertensive emerg (1) TIA (transient ischemic attack) ICD Code: G45.9 (2) Hypertensive urgency ICD Code: I16.0 (3) Diet-controlled diabetes mellitus ICD Code: E11.9 (4) GERD (gastroesophageal reflux disease) ICD Code: K21.9 (5) Acute renal failure ICD Code: N17.9 Procedures none Brief History - From Admission 89-year-old [place] female with a history of hypertension, GERD, diet controlled diabetes type 2 chemotherapy to the ED for evaluation of for possible stroke as patient was sent to the ED by her PCP this morning. Apparently patient was seen in complain of discoordination of her left hand primarily, which started yesterday. Patient described sometimes after breakfast as she was washing dishes she started dropping her dishes mostly from her left hand. O on patient was unable to bottom her shirt. She also noticed some degree of facial drop exacerbated by left hand numbness. Patient states, on 07/17/16 she was prescribed another BP medication however due to poor communication with her PCPs office she hasn't been able to get his medications therefore she has noticed increase BP in the past several days. On arrival in the ED she had accelerated hypertension with systolic 222 which responded well to labetalol IV 1. She has no GI bleed. During my exam her symptoms seem to have resolved and head CT was negative. CBC/BMP: 07/24/16 0840 07/24/16 1015 Significant Findings Laboratory Tests Test 07/23/16 07/24/16 07/24/16 12:45 08:40 10:15 Monocytes (%) (Auto) 9.3 % (0.0-8.0) Blood Urea Nitrogen 20 MG/DL (7-18) Creatinine 1.19 MG/DL (0.50-1.00) Estimat Glomerular Filtration 43 ML/MIN (>89) 65 ML/MIN (>89) 55 ML/MIN (>89) Rate Red Blood Count 3.83 MIL/MM3 (4.00-5.30) Hematocrit 34.1 % (35.0-46.0) Chloride Level 108 MEQ/L 108 MEQ/L (98-107) (98-107) Calcium Level 8.3 MG/DL 7.8 MG/DL (8.5-10.1) (8.5-10.1) Cholesterol Level 218 MG/DL (120-200) LDL Cholesterol 111 MG/DL (0-99) HDL Cholesterol 90.8 MG/DL 83.4 MG/DL (40.0-60.0) (40.0-60.0) Random Glucose 136 MG/DL (74-106) Folate GREATER THAN 20.0 NG/ML (3.1-17.5) Imaging Last Impressions Neck CTA 07/24/16843 Signed Impressions: Service Date/Time: July 09:13 - CONCLUSION: No stenotic lesions seen in either carotid. Lai Paulson MD Head CTA [id number]/24/16843 Signed Impressions: Service Date/Time: July 09:13 - CONCLUSION: No evidence of vessel truncation or aneurysm. Lai Paulson MD Head Magnetic Resonance Angiography 07/23/16 Signed Impressions: Service Date/Time: Saturday, July 23, 2016 16:24 - CONCLUSION: 1. Scattered atherosclerotic disease most pronounced involving the M1 segment on the right with a 50-60%% stenosis. Lai Dietrich Jr., MD Head CT 07/23/16 Signed Impressions: Service Date/Time: Saturday, July 23, 2016 13:01 - CONCLUSION: Normal examination for a patient of this age. Pieter Dwyer MD Carotid Artery Ultrasound 07/23/16 Signed Impressions: Service Date/Time: Saturday, July 23, 2016 22:22 - CONCLUSION: Bilateral carotid bifurcation atherosclerotic plaque, minimal on the right and mild on the left. No hemodynamically significant narrowing. Kaiser Nassar MD Brain MRI 07/23/16 Signed Impressions: Service Date/Time: Saturday, July 23, 2016 16:24 - CONCLUSION: 1. Tiny focus of acute cortical infarction involving the right parietal lobe. No hemorrhage. 2. Extensive chronic small vessel ischemic change. Lai Dietrich Jr., MD PE at Discharge GENERAL: NAD SKIN: Warm and dry. HEAD: Normocephalic. EYES: No scleral icterus. No injection or drainage. NECK: Supple, trachea midline. No JVD or lymphadenopathy. CARDIOVASCULAR: Regular rate and rhythm without murmurs, gallops, or rubs. RESPIRATORY: Breath sounds equal bilaterally. No accessory muscle use. GASTROINTESTINAL: Abdomen soft, non-tender, nondistended. MUSCULOSKELETAL: No cyanosis, or edema. Neuro:CN II-XII BACK: Nontender without obvious deformity. No CVA tenderness. Hospital Course Patient was admitted and diagnosed with Acute right MCA infarct for which ischemic stroke protocol was started. Permissive hypertension was allowed and patient was started on aspirin, Lipitor will consultation to neurology as well as PT/OT/speech therapy and rehabilitation medicine. Subsequently, permissive hypertension will discontinue and oral hypertensive medication including Cardizem 180 mg daily was resume and patient started on hydralazine which was subsequently increased to 50 mg by mouth twice a day. Her renal function improved with IV fluid hydration. DVT and GI prophylaxis were provided. Vitals remained stable and patient's condition improved prior to discharge. Pt Condition on Discharge: Stable Discharge Disposition: Disch w/ Home Health Serv Discharge Time: > 30 minutes Discharge Instructions DIET: Follow Instructions for: Heart Healthy Diet, Diabetic Diet Follow up Referrals: Neurology PCP Follow-up - 1 Week Physical Medicine & Rehab - 1 Month with Chichi Hawk MD New Medications: Hydralazine (Hydralazine) 50 Mg Tab 50 MG PO BID Take with a meal Blood Pressure Management #60 Ref 0 TAB Atorvastatin (Lipitor) 10 Mg Tab 10 MG PO DAILY Cholesterol Management #30 TAB ([Aspirin Ec]) 325 MG TABEC 325 MG PO DAILY Stroke Prevention #30 TAB.EC Continued Medications: Diltiazem ER 24 HR (Diltiazem ER 24 HR) 180 Mg Tonie 180 MG PO DAILY #30 Ref 0 TAB Omeprazole (Omeprazole) 20 Mg Tab 20 MG PO DAILY #30 Ref 0 TAB Alexandro Baltazar MD Jul 25, 2016 11:38
[2016-07-25] MEDS ORDERED: LIPI10TA PO (11:39)
[2016-07-25] MEDS ORDERED: hydrALAZINE HCL 25 MG TAB PO ONE (11:45)
--- NOTE | 2016-07-26 16:40 | HM ---
Date Performed: 07/24/2016 Time Performed: 17:07:00 HOOKUP DATE: 07/24/16 05:07:00 PM Lani ANALYSIS START TIME: 07/24/2016 5:12:00 PM ANALYSIS END TIME: 07/25/2016 3:05:05 PM PATIENT AGE: 89 PATIENT HEIGHT PATIENT WEIGHT: 116 DRUG LIST PATIENT DIAGNOSIS: ACUTE ISCHEMIC CVA HYPERTENSIVE EMERGENCY TEST NARRATIVE: The patient's average heart rate was 71 BPM. Heart rates greater than 120 B PM were noted < 1% of the time. No episodes of bradycardia were noted. No pauses exceeding 2.0 s econds were noted. 40 ventricular ectopics, which represented < 1% of the total beat count, were noted. The highest ventricular ectopic frequency occurred from 12:00 PM to 01:00 PM Fri. During thi s time 15 VE(s) occurred. Ventricular ectopics were observed as 40 isolated beat(s) only. No couple ts or runs were noted. Some of the ventricular beats occurred in bigeminal cycles. 70 supraventr icular ectopics, which represented < 1% of the total beat count, were noted. The highest supraventri cular ectopic frequency occurred from 07:00 PM to 08:00 PM Lani. During this time 9 SVE(s) occurred. Multiple episodes of ST depression (defined as -1.0 mm or more) were noted in channel 1. The ma ximum depression of -1.8 mm occurred at 10:00:27 AM Fri. No episodes of ST depression (defined as -1 .0 mm or more) were noted in channel 2. No episodes of ST depression (defined as -1.0 mm or more) we re noted in channel 3. PATIENT DIARY WAS NOT RETURNED WITH HOLTER MONITOR. TEST INTERPRETATION: Overall benign Holter monitoring. The underlying rhythm is Sinus rhythm . Three short runs of atrial tachycardia are recorded, the longest run only 6 beats in duration, lik lamar of no clinical significance. S igned by : Joe Henderson
== END 2016-07-25 15:41 | disposition home health service (06) | DRG 65 ==
LOC: NEPA 11:58 → NEDA 14:47 → N05A 17:23
PROVIDERS: ADMIT Hospitalist; ATTEND Hospitalist
DX: I63.511 Cerebral infarction due to unspecified occlusion or stenosis of right middle cerebral artery (principal); N17.9 Acute kidney failure, unspecified; I16.0 Hypertensive urgency; E11.9 Type 2 diabetes mellitus without complications; E86.0 Dehydration; K21.9 Gastro-esophageal reflux disease without esophagitis; I10 Essential (primary) hypertension; R20.0 Anesthesia of skin; R29.810 Facial weakness
CPT/HCPCS: 70450; 70496; 70498; 70544; 70551; 80048; 80053; 80061; 81001; 82550; 82607; 82746; 83036; 84425; 84439; 84443; 84484; 85025; 85610; 85652; 85730; 86038; 93005; 93225; 93226; 93306; 93880; 96374; J1644; J7030; Q9967

== ENCOUNTER 2016-08-29 10:19 | Emergency (ER) | payer MEDICARE, OTHER, MEDICAID ==
[~2016-08-29] VITALS: Ht 160 cm; Wt 50.0 kg
[~2016-08-29 10:19] MED LIST: Aspirin Ec PO; DILT0.05 PO; HYDR50TA15 PO; LIPI10TA PO; OMEP20TA PO
[2016-08-29 10:20] VITALS: BP 232/99; PULSE 81; PULSE 84; RESP 18; TEMP 98.4; O2SAT 97; O2SAT 98
[2016-08-29] MEDS ORDERED: TETANUS/DIPHTHERIA TOXOID ADULT 0.5 ML VIAL IM ONE (10:45)
--- NOTE | 2016-08-29 11:50 | RADRPT ---
EXAM DATE/TIME: 08/29/2016 11:19 [place] COMPARISON: CT BRAIN W/O CONTRAST, July 23, 2016, 13:01. INDICATIONS : Fall this morning. Pain and swelling over right eye. RADIATION DOSE: 38.46 CTDIvol (mGy) MEDICAL HISTORY : Hypertension. Diabetes mellitus type 2. SURGICAL HISTORY : None. ENCOUNTER: Initial ACUITY: 1 day PAIN SCALE: 7/10 LOCATION: Right cranial TECHNIQUE: Multiple contiguous axial images were obtained of the head. Using automated exposure control and adj ustment of the mA and/or kV according to patient size, radiation dose was kept as low as reasonably a chievable to obtain optimal diagnostic quality images. FINDINGS: There is marked soft tissue swelling of the right orbit. The intracranial contents are unremarkable. There is no parenchymal hemorrhage, acute infarction or extraaxial fluid collections appreciated. Ventricular size is appropriate. Review of bone windows reveals no obvious fracture. CONCLUSION: Cephalohematoma right orbit, otherwise negative. Stephen Conner MD FACR on August 29, 2016 at 11:37 Board Certified Radiologist. This report was verified electronically.
--- NOTE | 2016-08-29 13:03 | PD ---
HPI Chief Complaint: Fall Time Seen by Provider: 10:42 Travel History International Travel<30 days: No Contact w/Intl Traveler<30days: No Traveled to known affect area: No History of Present Illness HPI 89-year-old female came to the emergency room brought by EMS after sustaining a fall from tripping on an elevated step. Patient denies any dizziness, syncopal episode or loss of consciousness after the fall. She did hit her head on the right side and has a significant periorbital ecchymosis. Her vital signs were stable upon arrival. GCS is been 15 all throughout the transportation and up until the arrival. She is awake and answering questions appropriately. Patient is not on any blood thinners as per her. [facility] Past Medical History Narrative Medical List of her past medical, surgical, social and family history was reviewed from the nursing note. Cardiovascular Problems: Yes (HTN) High Cholesterol: Yes Cerebrovascular Accident: Yes (TIA ) Diabetes: Yes (DIET-CONTROLLED) Patient Takes Glucophage: No Hypertension: Yes Tetanus Vaccination: < 5 Years Influenza Vaccination: Yes ?: Not Past Surgical History Other Surgery: Yes (left breast cyst) Social History Alcohol Use: No Tobacco Use: No Substance Use: No Allergies-Medications (Allergen,Severity, Reaction): Coded Allergies: No Known Allergies (Unverified , 08/29/16) Comments No known drug allergies. Reported Meds & Prescriptions Reported Meds & Active Scripts Active Lipitor (Atorvastatin Calcium) 10 Mg Tab 10 Mg PO DAILY Hydralazine (Hydralazine HCl) 50 Mg Tab 50 Mg PO BID Take with a meal [Aspirin Ec] 325 MG Tabec 325 Mg PO DAILY Reported Diltiazem ER 24 HR 180 Mg Tonie 180 Mg PO DAILY Omeprazole 20 Mg Tab 20 Mg PO DAILY Narrative Medication List of her home medications reviewed from the nursing note. Review of Systems Except as stated in HPI: all other systems reviewed are Neg Physical Exam Narrative GENERAL: Awake, alert, elderly, mild distress SKIN: Focused skin assessment warm/dry. Deep abrasion above the right eyebrow. No active bleeding. HEAD: Atraumatic. Normocephalic. EYES: Pupils equal and round. No scleral icterus. No injection or drainage. Significant right periorbital ecchymosis. The eyelids tightly shut and unable to open them to see the orbit. ENT: No nasal bleeding or discharge. Mucous membranes pink and moist. NECK: Trachea midline. No JVD. CARDIOVASCULAR: Regular rate and rhythm. No murmur appreciated. RESPIRATORY: No accessory muscle use. Clear to auscultation. Breath sounds equal bilaterally. GASTROINTESTINAL: Abdomen soft, non-tender, nondistended. Hepatic and splenic margins not palpable. MUSCULOSKELETAL: No obvious deformities. No clubbing. No cyanosis. No edema. NEUROLOGICAL: Awake and alert. No obvious cranial nerve deficits. Motor grossly within normal limits. Normal speech. PSYCHIATRIC: Appropriate mood and affect; insight and judgment normal. Data Data Last Documented VS Vital Signs Date Time Temp Pulse Resp B/P Pulse Ox O2 Delivery O2 Flow Rate FiO2 08/29/16 13:20 86 18 188/89 97 Room Air 08/29/16 10:20 98.4 Orders Tetanus/Diphtheria Tox Adult (Tetanus/Di (08/29/16 10:45) Ct Brain W/O Iv Contrast(Rout) (08/29/16 ) Mzdiouec-Qgorz-Uhskxxncto Oint (Neospori (08/29/16 13:15) MDM Medical Decision Making Medical Screen Exam Complete: Yes Emergency Medical Condition: Yes Medical Record Reviewed: Yes Differential Diagnosis Intracranial bleeding, orbital fracture, skull fracture Narrative Course 12:[address] scan is completely within normal limits except for the hematoma periorbitally. I went and reassessed the patient and she is awake. She was applying ice bag on her hematoma. She said she was hungry and I have given her a food tray which she is eating happily. She is completely awake, alert and in no obvious distress percent I'll discharge her home. Patient did not remember her last tetanus shot and hence have given her one today. Procedures EKG Prior to Arrival: No Diagnosis Primary Impression: Fall Qualified Code: W19.XXXA - Fall, initial encounter Additional Impression: Periorbital hematoma of right eye Referrals: Primary Care Physician 3 days Additional Instructions: Please return to the ER if the condition worsens or any other new concerns. Keep applying cold compress on the hematoma 3-4 times a day. That will keep ear swelling down. Apply the triple antibiotic ointment given to you twice a day on the abrasion. Follow-up with your primary care in couple days. Med/Other Pt SpecificInfo: No Change to Meds Disposition: 01 DISCHARGE HOME Condition: Stable Casimiro Carlton MD Aug 29, 2016 13:02
[2016-08-29] MEDS ORDERED: NEOMYCIN/POLYMYXIN/BACITRACIN OINT 15 GM TUBE TOPICAL ONE (13:15)
[2016-08-29 13:20] VITALS: BP 188/89; PULSE 86; RESP 18; O2SAT 97
== END 2016-08-29 14:05 | disposition home or self-care (01) ==
LOC: NEPC 10:19
DX: S00.10XA Contusion of unspecified eyelid and periocular area, initial encounter (principal); I10 Essential (primary) hypertension; E11.9 Type 2 diabetes mellitus without complications; W10.9XXA Fall (on) (from) unspecified stairs and steps, initial encounter; Z23 Encounter for immunization
CPT/HCPCS: 70450; 90471; 90714